=== PATIENT | male | born 1990 | race Two or more races ===

== ENCOUNTER 2023-08-07 18:47 | Emergency (ER) | payer MEDICAID ==
[~2023-08-07] VITALS: Ht 167.6 cm; Wt 45.5 kg
[2023-08-07] MEDS ORDERED: BACTDSB PO (19:21)
[2023-08-07 19:45] VITALS: BP 141/96; PULSE 76; RESP 16; TEMP 97.3
== END 2023-08-07 20:00 | disposition home or self-care (01) ==
LOC: EMS 18:47
DX: L03.116 Cellulitis of left lower limb (principal); Z91.018 Allergy to other foods
CPT/HCPCS: 99283